=== PATIENT | female | born 1965 | race Caucasian/White ===

== ENCOUNTER 2019-03-07 16:16 | Emergency (ER) | payer OTHER ==
[2014-10-16 09:10] VITALS: Wt 47.6 kg
[~2019-03-07 16:16] MED LIST: HYDR2TAB4 PO; IBUP800T37 PO; LEVO88TA45 PO; PROG50VI4 IM; THYR60TA25 PO; [UNRECOGNIZED DRUG - CODE] VG
--- NOTE | 2019-03-07 16:29 | ER Report ---
History and Physical Time Seen By MD: 16:29 Hx. of Stated Complaint: Pt. has had tooth infection since Monday. Her dentist in [place] called her in a perscription for Clindamycin on Monday. She flew to [place] on Monday, and arrived back here today. While in [place], she went to ER because pain was worse and traveling up her face. Was given IV antibiotics at the ER in [place] and IV steroids yesterday morning. Still having pain and swelling in the right cheek and right eye, which in unchanged. Now, she has a visibile abscess in the area above the sore tooth. Pt. says she felt feverish, but hasn't taken her temp. Afebrile in triage. HPI/ROS CHIEF COMPLAINT: Facial swelling and dental pain HISTORY OF PRESENT ILLNESS: 53-year-old female patient presents to emergency room with complaint of facial swelling and dental pain. Patient states that she has been having pain since Monday. Patient states that she started having pain when she went to a baseball game downtown [place]. She states that she did contact her dentist who called in a prescription for some antibiotics, clindamycin. She states that she had no improvement and was seen in emergency room in [place] yesterday. She states that they gave her IV antibiotics and steroid. She states states that they told her that she should be feeling better today. She states the pain has gotten worse since yesterday and into today. She states that she's not been able to sleep because the pain has been so bad. She states that she has had a fever up to 101. She states that she has noticed some swelling to the gumline above the tooth that is painful. Patient also states she has had swelling to the face as well as a yellowness discharge from around her right eye. Patient states she has an appointment with her dentist at 10:30 tomorrow. REVIEW OF SYSTEMS: Respiratory: No cough, no dyspnea. Cardiovascular: No chest pain, no palpitations. Gastrointestinal: No vomiting, no abdominal pain. Musculoskeletal: No back pain. Allergies: Coded Allergies: Penicillins (Verified Allergy, Mild, 03/07/19) latex (Verified Allergy, Mild, 03/07/19) Home Meds Active Scripts Oxycodone Hcl/Acetaminophen (PERCOCET 5-325 MG TABLET) 1 Each Tablet, 1 EACH PO Q4-6H PRN for PAIN, #12 TAB Prov:PHILOMENA LEON LEAD SOFTWARE DEVELOPMENT ENGINEER 03/07/19 Cefdinir 300 Mg Cap (OMNICEF 300 MG CAP (OR EQUIV)) 300 Mg Cap, 300 MG PO BID, #14 CAP Prov:PHILOMENA LEON LE[employer] SOFTWARE DEVELOPMENT ENGINEER 03/07/19 Reported Medications Levothyroxine Sodium (LEVOTHYROXINE SODIUM) 88 Mcg Tablet, 88 MCG PO QDAY 09/04/17 Past Medical/Surgical History Patient has a past medical history of migraines, neck pain, hypothyroidism, alcohol use. Patient has a surgical history of hysterectomy, cervical fusion. Reviewed Nurses Notes: Yes Hx Smoking: No Smoking Status: Never Smoker Hx Alcohol Use: Yes Constitutional Vital Sign - Last 24 Hours 03/07/19 03/07/19 03/07/19 03/07/19 16:20 16:21 16:26 16:30 Temp 98.0 Pulse 88 94 91 Resp 16 B/P (MAP) 132/80 132/80 (97) 123/64 (83) Pulse Ox 91 88 92 O2 Delivery Room Air 03/07/19 03/07/19 03/07/19 03/07/19 16:31 16:36 16:58 17:00 Pulse 94 90 B/P (MAP) 115/70 (85) 118/71 (87) Pulse Ox 92 94 03/07/19 03/07/19 03/07/19 03/07/19 17:30 17:36 17:41 17:46 Pulse 84 89 84 B/P (MAP) 122/82 (95) Pulse Ox 90 90 91 03/07/19 03/07/19 03/07/19 03/07/19 17:51 17:56 18:01 18:06 Pulse 83 83 79 82 Pulse Ox 91 94 89 90 03/07/19 03/07/19 03/07/19 03/07/19 18:11 18:16 18:21 18:26 Pulse 87 87 82 85 Pulse Ox 91 90 91 89 03/07/19 03/07/19 03/07/19 03/07/19 18:30 18:31 18:36 18:41 Pulse 85 84 85 B/P (MAP) 118/70 (86) Pulse Ox 92 90 91 03/07/19 03/07/19 03/07/19 03/07/19 18:46 18:51 18:56 19:01 Pulse 83 84 89 85 Pulse Ox 92 92 89 91 03/07/19 03/07/19 19:06 19:11 Pulse 81 Pulse Ox 92 92 Physical Exam General Appearance: The patient is alert, has no immediate need for airway protection and no current signs of toxicity. ENT: Tympanic membranes are pearly-medina, auditory canals are patent, mixed mucous membranes are moist. Patient does have swelling to the right side of her face, when looking at the teeth she did have drainage from tooth #6. Respiratory: Chest is non tender, lungs are clear to auscultation. Cardiac: regular rate and rhythm Gastrointestinal: Abdomen is soft and non tender, no masses, bowel sounds normal. Musculoskeletal: Neck: Neck is supple and non tender. Extremities have full range of motion and are non tender. Skin: No rashes or lesions. DIFFERENTIAL DIAGNOSIS: After history and physical exam differential diagnosis was considered for dental abscess, periorbital cellulitis, sinusitis. Medical Decision Making Data Points Result Diagram: 03/07/19 1643 03/07/19 1643 Laboratory Hematology Test 03/07/19 16:43 03/07/19 17:13 Red Blood Count 4.45 M/uL (4.17-5.56) Mean Corpuscular Volume 91.3 fL (80.0-96.0) Mean Corpuscular Hemoglobin 30.6 pg (26.0-33.0) Mean Corpuscular Hemoglobin Concent 33.5 g/dL (32.0-36.0) Red Cell Distribution Width 13.0 % (11.5-14.5) Mean Platelet Volume 6.8 fL (7.2-11.1) Neutrophils (%) (Auto) 81.2 % (39.4-72.5) Lymphocytes (%) (Auto) 12.2 % (17.6-49.6) Monocytes (%) (Auto) 5.2 % (4.1-12.4) Eosinophils (%) (Auto) 1.0 % (0.4-6.7) Basophils (%) (Auto) 0.4 % (0.3-1.4) Nucleated RBC Relative Count (auto) 0.0 /100WBC Neutrophils # (Auto) 8.9 K/uL (2.0-7.4) Lymphocytes # (Auto) 1.3 K/uL (1.3-3.6) Monocytes # (Auto) 0.6 K/uL (0.3-1.0) Eosinophils # (Auto) 0.1 K/uL (0.0-0.5) Basophils # (Auto) 0.0 K/uL (0.0-0.1) Nucleated RBC Absolute Count (auto) 0.00 K/uL Sodium Level 136 mmol/L (137-145) Potassium Level 4.0 mmol/L (3.5-5.0) Chloride Level 104 mmol/L (98-107) Carbon Dioxide Level 21 mmol/L (22-31) Blood Urea Nitrogen 8 mg/dl (7-18) Creatinine 0.70 mg/dl (0.52-1.04) Glomerular Filtration Rate Calc > 60.0 Random Glucose 87 mg/dl (75-110) Lactate 1.6 mmol/L (0.7-2.1) Calcium Level 9.1 mg/dl (8.4-10.2) Total Bilirubin 0.1 mg/dl (0.2-1.3) Aspartate Amino Transf (AST/SGOT) 16 U/L (0-35) Alanine Aminotransferase (ALT/SGPT) 23 U/L (0-56) Alkaline Phosphatase 55 U/L (0-126) Total Protein 5.9 g/dl (6.3-8.2) Albumin 3.6 g/dl (3.5-5.0) Urine Color Yellow Urine Clarity Clear Urine pH 6.0 pH (4.8-9.5) Urine Specific [place] 1.006 Urine Protein Negative mg/dL (NEGATIVE) Urine Glucose (UA) Negative mg/dL (NEGATIVE) Urine Ketones Negative mg/dL (NEGATIVE) Urine Blood Negative (NEGATIVE) Urine Nitrite Negative (NEGATIVE) Urine Bilirubin Negative (NEGATIVE) Urine Urobilinogen Negative mg/dL (0.2-1.9) Urine Leukocyte Esterase Negative (NEGATIVE) Urine RBC 1 /HPF (0-2/HPF) Urine WBC <1 /HPF (0-5/HPF) Urine Squamous Epithelial Cells Moderate /LPF (</=FEW) Urine Bacteria Few /HPF (NONE-FEW) Urine Mucus None /HPF (NONE-FEW) Chemistry Test 03/07/19 16:43 03/07/19 17:13 White Blood Count 11.0 k/uL (4.5-11.0) Red Blood Count 4.45 M/uL (4.17-5.56) Hemoglobin 13.6 g/dL (12.0-16.0) Hematocrit 40.7 % (34.0-47.0) Mean Corpuscular Volume 91.3 fL (80.0-96.0) Mean Corpuscular Hemoglobin 30.6 pg (26.0-33.0) Mean Corpuscular Hemoglobin Concent 33.5 g/dL (32.0-36.0) Red Cell Distribution Width 13.0 % (11.5-14.5) Platelet Count 216 K/uL (150-450) Mean Platelet Volume 6.8 fL (7.2-11.1) Neutrophils (%) (Auto) 81.2 % (39.4-72.5) Lymphocytes (%) (Auto) 12.2 % (17.6-49.6) Monocytes (%) (Auto) 5.2 % (4.1-12.4) Eosinophils (%) (Auto) 1.0 % (0.4-6.7) Basophils (%) (Auto) 0.4 % (0.3-1.4) Nucleated RBC Relative Count (auto) 0.0 /100WBC Neutrophils # (Auto) 8.9 K/uL (2.0-7.4) Lymphocytes # (Auto) 1.3 K/uL (1.3-3.6) Monocytes # (Auto) 0.6 K/uL (0.3-1.0) Eosinophils # (Auto) 0.1 K/uL (0.0-0.5) Basophils # (Auto) 0.0 K/uL (0.0-0.1) Nucleated RBC Absolute Count (auto) 0.00 K/uL Glomerular Filtration Rate Calc > 60.0 Lactate 1.6 mmol/L (0.7-2.1) Calcium Level 9.1 mg/dl (8.4-10.2) Total Bilirubin 0.1 mg/dl (0.2-1.3) Aspartate Amino Transf (AST/SGOT) 16 U/L (0-35) Alanine Aminotransferase (ALT/SGPT) 23 U/L (0-56) Alkaline Phosphatase 55 U/L (0-126) Total Protein 5.9 g/dl (6.3-8.2) Albumin 3.6 g/dl (3.5-5.0) Urine Color Yellow Urine Clarity Clear Urine pH 6.0 pH (4.8-9.5) Urine Specific [place] 1.006 Urine Protein Negative mg/dL (NEGATIVE) Urine Glucose (UA) Negative mg/dL (NEGATIVE) Urine Ketones Negative mg/dL (NEGATIVE) Urine Blood Negative (NEGATIVE) Urine Nitrite Negative (NEGATIVE) Urine Bilirubin Negative (NEGATIVE) Urine Urobilinogen Negative mg/dL (0.2-1.9) Urine Leukocyte Esterase Negative (NEGATIVE) Urine RBC 1 /HPF (0-2/HPF) Urine WBC <1 /HPF (0-5/HPF) Urine Squamous Epithelial Cells Moderate /LPF (</=FEW) Urine Bacteria Few /HPF (NONE-FEW) Urine Mucus None /HPF (NONE-FEW) Urinalysis Test 03/07/19 17:13 Urine Color Yellow Urine Clarity Clear Urine pH 6.0 pH (4.8-9.5) Urine Specific [place] 1.006 Urine Protein Negative mg/dL (NEGATIVE) Urine Glucose (UA) Negative mg/dL (NEGATIVE) Urine Ketones Negative mg/dL (NEGATIVE) Urine Blood Negative (NEGATIVE) Urine Nitrite Negative (NEGATIVE) Urine Bilirubin Negative (NEGATIVE) Urine Urobilinogen Negative mg/dL (0.2-1.9) Urine Leukocyte Esterase Negative (NEGATIVE) Urine RBC 1 /HPF (0-2/HPF) Urine WBC <1 /HPF (0-5/HPF) Urine Squamous Epithelial Cells Moderate /LPF (</=FEW) Urine Bacteria Few /HPF (NONE-FEW) Urine Mucus None /HPF (NONE-FEW) EKG/Imaging Imaging EXAMINATION: CT facial bone with IV contrast HISTORY: Right upper dental abscess. Right eye swollen. COMPARISON: None. TECHNIQUE: Axial images were obtained from the superior aspect of the orbits through the inferior aspect of mandible with IV contrast. Coronal and sagittal reformatted images were obtained from the axial source data. One of the following dose optimization techniques was utilized in the performance of this exam: Automated exposure control; adjustment of the mA and/or kV according to the patient's size; or use of an iterative r econstruction technique. Specific details can be referenced in the facility's radiology CT exam operational policy. CONTRAST: 75 mL of IV Isovue 370. FINDINGS: There is soft tissue edema and inflammatory changes along the anterior aspect of the right maxilla. Couple tiny foci of air are identified and unsure if this is uncertain of the liver. There is no definite or discrete fluid collection. The edema and swelling extend to the right orbit which shows no discrete fluid collection or post septal abnormality. The remaining soft tissues show no focal abnormality. No abnormal enhancement is otherwise seen no fluid collections or enlarged lymph nodes. No masses. The orbits are otherwise symmetric without focal abnormality and the post septal regions. No soft tissue swelling about the left orbit. Bony structures show no fractures or lesions. The sinuses and mastoids visualized are clear. The ostiomeatal complexes bilaterally appear patent. Temporomandibular joints are intact and symmetric. Visualized cervical spine shows postsurgical changes and degenerative changes without sequelae. IMPRESSION: There is soft tissue edema and induration with some swelling along the anterior right maxillary soft tissue region extending up to the right orbit. There is no defined fluid collection. No post septal right orbital abnormality. Report Dictated By: Galen Collier at 03/07/2019 6:08 PM Report E-Signed By: Galen Collier at 03/07/2019 6:17 PM ED Course/Re-evaluation ED Course Patient was admitted to an exam room, history and physical were obtained. Di fferential diagnoses were considered. On examination patient did have swelling to the right side of her face. We'll look into her mouth she did have purulent drainage from tooth #6. An IV was started, patient received a dose of morphine 4 mg, a CBC, CMP, lactate, blood cultures were obtained. A CT scan of the facial bones was done. Patient had a slightly elevated white count of 11,900. She did have a left shift. Left was read unremarkable. Lactate was 1.6. CT scan showed significant soft tissue swelling with no discernible abscess. Patient received 1 g of Rocephinhere. I discussed the findings with the patient. I do not feel there is any reason to cut into the gum. My concern is that I would do more harm than good. Especially with not seeing any abscess on the CAT scan. Patient does have an appointment with dentist tomorrow. We will go ahead and change her to Omnicef. On reevaluation patient had a scant amount of drainage from tooth #6. Patient is to return to the emergency room if she develops headache, fever or worsening pain. Patient verbalized understanding and agreement with plan. Decision to Disposition Date: Mar 07, 2019 Decision to Disposition Time: 18:56 Depart Departure Latest Vital Signs Vital Signs Date Time Temp Pulse Resp B/P (MAP) Pulse Ox O2 Delivery O2 Flow Rate FiO2 03/07/19 19:11 92 03/07/19 19:06 81 03/07/19 18:30 118/70 (86) 03/07/19 16:20 98.0 16 Room Air Impression: Primary Impression: Dental abscess Condition: Improved Disposition: HOME OR SELF-CARE Referrals: RISHABH TORRES DO (PCP) New Scripts Oxycodone Hcl/Acetaminophen (PERCOCET 5-325 MG TABLET) 1 Each Tablet 1 EACH PO Q4-6H PRN for PAIN, #12 TAB Prov: PHILOMENA LEON 03/07/19 Cefdinir 300 Mg Cap (OMNICEF 300 MG CAP (OR EQUIV)) 300 Mg Cap 300 MG PO BID, #14 CAP Prov: PHILOMENA LEON 03/07/19 Patient Instructions: Dental Abscess (ED) Additional Instructions: You may take Ibuoprofen in addition to the pain medication as needed for pain. Rinse mouth with warm salt water after every meal. Eat soft foods. Follow up with your dentist tomorrow as scheduled. Return to the ER if condition worsens. Monitor for elevated fever, greater than 102, horrible frontal headache. PHILOMENA LEON Mar 07, 2019 16:29
[2019-03-07] MEDS ORDERED: NS(*) 0.9% 1000 ML BAG 1,000 ML IV ONE (16:40)
[2019-03-07] MEDS ORDERED: cefTRIAXone(*) 1 GM VIAL 1 GM in NS(*) 0.9% 100 ML MINI-BAG 100 ML IVPB ONE (16:40)
[2019-03-07] MEDS ORDERED: MORPHINE 4 MG/ML SDV IVP ONE (16:50)
[2019-03-07 16:52] LABS: PLATELET COUNT, AUTOMATED 216 K/uL (150-450)
[2019-03-07] MEDS ORDERED: IOPAMIDOL 76% 150 ML INFUS BTL 150 ML ONE (17:07)
--- NOTE | 2019-03-07 18:21 | RADIOLOGY IMAGING REPORT ---
FACILITY: [facility] - [place] PATIENT NAME: Emily Gupta : 1965 MR: [id number] V: [id number] EXAM DATE: ORDERING PHYSICIAN: PHILOMENA LEON TECHNOLOGIST: Location: [facility] - [place] Patient: Emily Gupta : 1965 Visit/Account:[id number] Date of Sevice: 03/07/2019 EXAMINATION: CT facial bone with IV contrast HISTORY: Right upper dental abscess. Right eye swollen. COMPARISON: None. TECHNIQUE: Axial images were obtained from the superior aspect of the orbits through the inferior as pect of mandible with IV contrast. Coronal and sagittal reformatted images were obtained from the axi al source data. One of the following dose optimization techniques was utilized in the performance of this exam: Autom ated exposure control; adjustment of the mA and/or kV according to the patient's size; or use of an i terative reconstruction technique. Specific details can be referenced in the facility's radiology C T exam operational policy. CONTRAST: 75 mL of IV Isovue 370. FINDINGS: There is soft tissue edema and inflammatory changes along the anterior aspect of the right maxilla. C ouple tiny foci of air are identified and unsure if this is uncertain of the liver. There is no defin ite or discrete fluid collection. The edema and swelling extend to the right orbit which shows no dis crete fluid collection or post septal abnormality. The remaining soft tissues show no focal abnormality. No abnormal enhancement is otherwise seen no fl uid collections or enlarged lymph nodes. No masses. The orbits are otherwise symmetric without focal abnormality and the post septal regions. No soft tissue swelling about the left orbit. Bony structure s show no fractures or lesions. The sinuses and mastoids visualized are clear. The ostiomeatal comple xes bilaterally appear patent. Temporomandibular joints are intact and symmetric. Visualized cervical spine shows postsurgical changes and degenerative changes without sequelae. IMPRESSION: There is soft tissue edema and induration with some swelling along the anterior right maxillary soft tissue region extending up to the right orbit. There is no defined fluid collection. No post septal r ight orbital abnormality. Report Dictated By: Galen Collier at 03/07/2019 6:08 PM Report E-Signed By: Galen Collier at 03/07/2019 6:17 PM WSN:[id number]
[2019-03-07 18:30] VITALS: BP 118/70
[2019-03-07] MEDS ORDERED: CEF300 PO (19:03)
[2019-03-07] MEDS ORDERED: OXYC-865 PO (19:03)
== END 2019-03-07 19:30 | disposition home or self-care (01) ==
LOC: ER 16:40
DX: K04.7 Periapical abscess without sinus (principal); R51 Headache
CPT/HCPCS: 36415; 70487; 81001; 83605; 85025; 87040; 96365; 96375; 99284; J0696; J2270; J7030; Q9967; 82040; 82247; 82310; 82374; 82435; 82565; 82947; 84075; 84132; 84155; 84295; 84450; 84460; 84520